=== PATIENT | female | born 1935 | race Caucasian/White ===

== ENCOUNTER → 2016-07-05 | Outpatient (CLI) | payer MEDICARE, OTHER ==
--- NOTE | 2016-07-05 11:39 | Diagnostic Imaging Report ---
Indication: COUGH Technique: One view of the chest Comparison: 01/20/2010 Findings: Again demonstrated is right apical pleural scarring. There is also right suprahilar probable scarring, with volume loss and retraction of the right pulmonary hilum. The lungs and pleural spaces otherwise clear. No infiltrates, effusions, or congestion. There is a small hiatal hernia again demonstrated. 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
== END | disposition home or self-care (01) ==
LOC: RAD 10:23
DX: R05 Cough (principal); R50.9 Fever, unspecified
CPT/HCPCS: 71020

== ENCOUNTER 2017-03-20 11:32 | Outpatient (CLI) | payer MEDICARE, OTHER ==
--- NOTE | 2017-03-20 14:21 | Diagnostic Imaging Report ---
Indications: hip pain Findings: Two views of the left hip were obtained. No fracture identified. No malalignment seen. Bones appear osteopenic. Impression: No acute findings
== END 2017-03-20 13:32 | disposition home or self-care (01) ==
LOC: RAD 11:32
DX: M25.552 Pain in left hip (principal); M85.88 Other specified disorders of bone density and structure, other site
CPT/HCPCS: 73502

== ENCOUNTER → 2017-09-03 | Outpatient (CLI) | payer MEDICARE, OTHER ==
--- NOTE | 2017-09-03 13:08 | Diagnostic Imaging Report ---
Indication: Neck pain, radiculopathy Technique: 4 views of the cervical spine Comparison: none Findings: Bony alignment is normal. Vertebral body heights are preserved. There is mild degenerative disc narrowing at C6-7. The remaining disc spaces are preserved. There are anterior degenerative proliferative changes. There is minimal degenerative narrowing of the bilateral C6-7 neural foramina. Impression: Degenerative changes, as described No acute bony trauma
== END | disposition home or self-care (01) ==
LOC: RAD 11:23
DX: M54.2 Cervicalgia (principal); M48.02 Spinal stenosis, cervical region
CPT/HCPCS: 72052